=== PATIENT | male | born 1965 | race African-American/Black ===

== ENCOUNTER 2023-09-08 20:04 | Inpatient (IN) | payer BC, SELFPAY ==
[2023-09-08 22:52] VITALS: BMI 30.9
[2023-09-08] MEDS ORDERED: Dextrose 50% Abboject 50 ML SYRINGE SLOW IVP PRN (22:54)
[2023-09-08] MEDS ORDERED: Acetaminophen 325 MG TAB PO PRN (22:54)
[2023-09-08] MEDS ORDERED: Ondansetron ODT 4 MG TAB PO PRN (22:54)
[2023-09-08] MEDS ORDERED: Dextrose 5% in Water 1,000 ML IV PRN (22:54)
[2023-09-08] MEDS ORDERED: Glucagon 1 MG/ML KIT IM PRN (22:54)
[2023-09-08] MEDS ORDERED: Piperacillin/Tazobactam 3.375 GM in Sodium Chloride 0.9% 100 ML IVPB SCH (23:59)
[2023-09-08] MEDS ORDERED: TETANUS, DIPHTHERIA TOX,ADULT (TDVAX) 0.5 ML VIAL IM ONE (23:59)
[2023-09-09] MEDS: traMADol HCl 50 MG TAB PO PRN ×2 (03:55→11:58)
[2023-09-09] MEDS ORDERED: Piperacillin/Tazobactam 3.375 GM in Sodium Chloride 0.9% 100 ML IVPB SCH (04:00)
[2023-09-09 05:03] LABS: #Eosinphils 0.1 thou/uL (0.0-0.7); #Monocytes 1.5 thou/uL (0.11-0.59); #Neutrophils 12.6 thou/uL (1.40-6.50); %Basophils 0.3 % (0.0-1.0); %Eosinophils 0.5 % (0.0-10.0); %Lymphocytes 8.2 % (21.0-51.0); %Monocytes 9.5 % (0.0-10.0); %Neutrophils 81.2 % (42.0-75.0); Hematocrit 40.3 % (42.0-52.0); Hemoglobin 13.4 g/dL (14.0-18.0); Mean Corpuscular HGB CONC 33.3 g/dL (32.0-36.0); Mean Corpuscular Hemoglobin 26.9 pg (27.0-31.0); Mean Corpuscular Volume 80.9 fl (78.0-98.0); Mean Platelet Volume 10.3 fL (7.4-10.4); Platelet Count 313 10x3/uL (130-400); RBC Distribution Width 12.6 % (11.5-14.5); Red Blood Cell (RBC) Count 4.98 mill/uL (4.70-6.10); White Blood Cell (WBC) Count 15.4 10x3/uL (4.8-10.8)
[2023-09-09 05:40] LABS: ALT (SGPT) 18 U/L (8-55); AST (SGOT) 13 U/L (5-34); Albumin 3.6 g/dL (3.5-5.0); Alkaline Phosphatase 94 U/L (40-110); Anion Gap 12 mmol/L (10-20); BUN (Urea Nitrogen) 12 mg/dL (8.4-25.7); Bilirubin, Total 0.8 mg/dL (0.2-1.2); Calc. Creatinine Clearance 113 mL/min (70-130); Calcium 8.9 mg/dL (7.8-10.44); Carbon Dioxide 26 mmol/L (22-29); Chloride 98 mmol/L (98-107); Estimated GFR 72; Globulin 3.6 g/dL (2.4-3.5); Glucose 371 mg/dL (70-105); Potassium 3.7 mmol/L (3.5-5.1); Protein, Total 7.2 g/dL (6.0-8.3); Sodium 132 mmol/L (136-145)
[2023-09-09] MEDS: HumaLOG 300 UNITS/3 ML VIAL SC PRN ×2 (06:07→12:02)
[2023-09-09] MEDS: Amlodipine 10 MG TAB PO SCH (08:21)
[2023-09-09] MEDS: Losartan 25 MG TAB PO SCH (08:21)
[2023-09-09] MEDS ORDERED: traMADol HCl 50 MG TAB PO PRN ×2 (09:12→10:00)
[2023-09-09 09:36] LABS: Hemoglobin A1c Greater than 14.0 % (4.0-6.0)
[2023-09-09] MEDS: Acetaminophen 500 MG TAB PO SCH ×2 (11:57→18:02)
[2023-09-09] MEDS: Piperacillin/Tazobactam 3.375 GM in Sodium Chloride 0.9% 100 ML IVPB SCH ×2 (11:57→20:23)
[2023-09-09] MEDS ORDERED: Sodium Chloride 0.9% 1,000 ML IV SCH (13:30)
[2023-09-09] MEDS ORDERED: HumaLOG 300 UNITS/3 ML VIAL SC PRN (15:25)
[2023-09-09] MEDS ORDERED: Midazolam HCl 2 mg/2 ml Vial ONE (16:06)
[2023-09-09] MEDS ORDERED: Ondansetron PF 4 MG/2 ML Vial ONE (16:09)
[2023-09-09] MEDS ORDERED: PROPOFOL 40 ML ONE (16:09)
[2023-09-09] MEDS ORDERED: fentaNYL PF 100 MCG/2 ML SYRINGE ONE (16:09)
[2023-09-09] MEDS ORDERED: Dexamethasone 4 mg/ml Vial ONE (16:09)
[2023-09-09] MEDS ORDERED: Lidocaine 1% PF 5 ML VIAL ONE (16:09)
[2023-09-09] MEDS ORDERED: PROPOFOL 20 ML ONE (16:25)
[2023-09-09] MEDS ORDERED: Glycopyrrolate 0.2 MG/ML 5 ML SYRINGE ONE (16:26)
[2023-09-09] MEDS ORDERED: Lidocaine 1% (PF) 30 ML VIAL ONE (16:30)
[2023-09-09] MEDS ORDERED: EPINEPHrine 1 MG/ML VIAL ONE (16:30)
[2023-09-09] MEDS ORDERED: Bupivacaine PF 0.5% 30 ML VIAL ONE (16:30)
[2023-09-09] MEDS ORDERED: Ibuprofen 600 MG TAB PO PRN (17:16)
[2023-09-09] MEDS: Insulin Glargine 30 UNITS/0.3 ML VIAL SC SCH (20:23)
[2023-09-10] MEDS: Acetaminophen 500 MG TAB PO SCH ×2 (00:03→06:10)
[2023-09-10] MEDS: Piperacillin/Tazobactam 3.375 GM in Sodium Chloride 0.9% 100 ML IVPB SCH (04:03)
[2023-09-10] MEDS ORDERED: HumaLOG 300 UNITS/3 ML VIAL SC PRN (08:19)
[2023-09-10] MEDS: Insulin Glargine 30 UNITS/0.3 ML VIAL SC SCH (08:54)
[2023-09-10] MEDS: Amlodipine 10 MG TAB PO SCH (08:55)
[2023-09-10] MEDS: Losartan 25 MG TAB PO SCH (08:56)
[2023-09-10] MEDS ORDERED: Alogliptin 6.25 MG TAB PO SCH (09:00)
[2023-09-10] MEDS ORDERED: Non-Formulary Item 1 EACH (Sitagliptin Phosphate [Januvia] 50 MG Tab) PO SCH (09:00)
[2023-09-10 12:34] LABS: Glucose 399 mg/dL (70-105)
[2023-09-10] MEDS ORDERED: Amoxicillin/Potassium Clav 875 MG TAB PO SCH (16:00)
[2023-09-10 16:42] VITALS: BP 140/80; TEMP 98.1
== END 2023-09-10 16:56 | disposition home or self-care (01) | DRG 603 ==
LOC: SURG A 21:45
PROVIDERS: ADMIT Surgery; ATTEND Surgery
PROC: 0J9C0ZZ Drainage of Pelvic Region Subcutaneous Tissue and Fascia, Open Approach (ICD-10-PCS; principal; 2023-09-09)
DX: L02.214 Cutaneous abscess of groin (principal); E87.1 Hypo-osmolality and hyponatremia; E11.9 Type 2 diabetes mellitus without complications; I10 Essential (primary) hypertension; Z98.890 Other specified postprocedural states; Z88.5 Allergy status to narcotic agent; Z79.899 Other long term (current) drug therapy; N40.0 Benign prostatic hyperplasia without lower urinary tract symptoms; Z83.3 Family history of diabetes mellitus; Z79.4 Long term (current) use of insulin; E11.65 Type 2 diabetes mellitus with hyperglycemia
CPT/HCPCS: 36415; 36416; 80053; 83036; 85025; 87070; 87076; 87077; 87205; J0171; J1100; J1650; J1815; J2001; J2250; J2405; J2543; J2704; J3490; S0020